=== PATIENT | female | born 1985 | race African-American/Black ===

== ENCOUNTER → 2017-11-13 | Outpatient (CLI) | payer OTHER ==
[2014-07-08 12:30] VITALS: BP 113/63
--- NOTE | 2017-11-13 16:34 | KCIC ---
Thyroid ultrasound HISTORY: Enlarged thyroid. Right thyroid: * 6.0 cm longitudinal by 1.1 cm AP by 2.0 cm transverse. * Normal echotexture and vascularity. * No dominant mass. Isthmus: * 3.5 mm Left thyroid: * 5.1 cm x 1.3 cm x 1.9 cm * Echotexture and vascularity appears within normal limits. * No dominant mass. IMPRESSION: 1. Borderline enlargement of the right lobe of the thyroid. 2. Otherwise unremarkable thyroid ultrasound without focal lesion. Electronically signed by: Dylan Francois MD (11/13/2017 4:31 PM) [facility]
--- NOTE | 2017-11-13 16:39 | KCIC ---
Pelvic ultrasound Clinical Indication: . Ovarian cyst.. Uterus: * Size (in centimeters): 8.1 x 3.9 x 4.9 * Appearance: No evidence of mass * Endometrium: 8 mm endometrial stripe thickness. Uniform appearance. Right ovary: * Size: 3.7 cm long axis. * Blood flow: Intact * Appearance: Complex 2.4 cm cyst with a thick septation. No significant internal vascularity. Left ovary: * Size: 3.4 cm long axis. * Blood flow: Intact * Appearance: No significant mass. Free fluid: None visualized IMPRESSION: 1. Complex cystic lesion in the right ovary measures 2.4 cm. This could be monitored with ultrasound follow-up. 2. Uterus and left ovary unremarkable. Electronically signed by: Dylan Francois MD (11/13/2017 4:35 PM) [facility]
== END | disposition home or self-care (01) ==
LOC: KCIC US 14:34
PROVIDERS: ATTEND Obstetrics & Gynecology
DX: N83.291 Other ovarian cyst, right side (principal); E04.9 Nontoxic goiter, unspecified
CPT/HCPCS: 76536; 76856

== ENCOUNTER 2018-11-10 09:30 | Emergency (ER) | payer MEDICAID, OTHER ==
[~2018-11-10] VITALS: Ht 182.9 cm; Wt 70.3 kg
[2018-11-10 09:35] VITALS: BP 114/58
--- NOTE | 2018-11-10 09:48 | PHYS DOC ---
Past Medical History Past Medical History: Sickle Cell Disease Past Surgical History: No Surgical History Alcohol Use: None Drug Use: None Adult General Chief Complaint Chief Complaint: LOWER BACK PAIN OR INJURY HPI HPI Patient is a 33 year old female that presents with left flank pain ongoing for a week. This the third time the patient's been seen for this complaint. The patient was told at that she did not have a urinary tract infection, went someplace else was told she did have a urinary tract infection and placed on Cipro for 7 days. Sates that when she was originally placed on Cipro she was having discharge and a dark urine which is now gone away. However she states that she still having left flank pain. She states that her pain as 7 out of 10 in severity and sharp and that she last took ibuprofen at 8:00 PM last night. Her only medical history is sickle cell anemia. Review of Systems Review of Systems Constitutional: Denies fever or chills [] Eyes: Denies change in visual acuity, redness, or eye pain [] HENT: Denies nasal congestion or sore throat [] Respiratory: Denies cough or shortness of breath [] Cardiovascular: No additional information not addressed in HPI [] GI: Reports L flank pain. Denies nausea, vomiting, bloody stools or diarrhea [] : Denies dysuria or hematuria [] Musculoskeletal: Denies back pain or joint pain [] Integument: Denies rash or skin lesions [] Neurologic: Denies headache, focal weakness or sensory changes [] Endocrine: Denies polyuria or polydipsia [] Complete systems were reviewed and found to be within normal limits, except as documented in this note. Allergies Allergies Allergies Coded Allergies Type Severity Reaction Last Updated Verified No Known Drug Allergies 12/15/13 No Physical Exam Physical Exam Constitutional: Well developed, well nourished, no acute distress, non-toxic appearance. [] HENT: Normocephalic, atraumatic, bilateral external ears normal, oropharynx moist, no oral exudates, nose normal. [] Eyes: PERRLA, EOMI, conjunctiva normal, no discharge. [] Neck: Normal range of motion, no tenderness, supple, no stridor. [] Cardiovascular:Heart rate regular rhythm, no murmur [] Lungs & Thorax: Bilateral breath sounds clear to auscultation [] Abdomen: Bowel sounds normal, soft, L flank tenderness, no masses, no pulsatile masses. [] Skin: Warm, dry, no erythema, no rash. [] Back: has back tenderness on palpation. Extremities: No tenderness, no cyanosis, no clubbing, ROM intact, no edema. [] Neurologic: Alert and oriented X 3, normal motor function, normal sensory function, no focal deficits noted. [] Psychologic: Affect normal, judgement normal, mood normal. [] Current Patient Data Vital Signs Vital Signs Date Time Temp Pulse Resp B/P (MAP) Pulse Ox O2 Delivery O2 Flow Rate FiO2 11/10/18 09:35 98.8 57 16 114/58 (76) 98 Room Air 98.8 Lab Values Laboratory Tests Test 11/10/18 09:35 11/10/18 09:44 Urine Collection Type Unknown Urine Color Yellow Urine Clarity Clear Urine pH 7.0 Urine Specific [place] 1.010 Urine Protein Negative mg/dL (NEG-TRACE) Urine Glucose (UA) Negative mg/dL (NEG) Urine Ketones (Stick) Negative mg/dL (NEG) Urine Blood Negative (NEG) Urine Nitrite Negative (NEG) Urine Bilirubin Negative (NEG) Urine Urobilinogen Dipstick 0.2 mg/dL (0.2 mg/dL) Urine Leukocyte Esterase Negative (NEG) Urine RBC 0 /HPF (0-2) Urine WBC 0 /HPF (0-4) Urine Squamous Epithelial Cells Few /LPF Urine Bacteria 0 /HPF (0-FEW) POC Urine HCG, Qualitative Hcg negative (Negative) EKG EKG [] Radiology/Procedures Radiology/Procedures [] Course & Med Decision Making Course & Med Decision Making Pertinent Labs and Imaging studies reviewed. (See chart for details) Will get UA and test. UA/Preg are negative. Appears likely to be muscle spasm. Will d/c home. Dragon Disclaimer Dragon Disclaimer This electronic medical record was generated, in whole or in part, using a voice recognition dictation system. Departure Departure Impression: Primary Impression: Back pain Disposition: HOME, SELF-CARE Condition: STABLE Referrals: NON,STAFF (PCP) Patient Instructions: Back Pain, Adult Additional Instructions: Thank you for visiting [facility]. We appreciate you trusting us with your care. If any additional problems come up don't hesitate to return to visit us. Please follow up with your primary care provider so they can plan additional care if needed and know about the problem that you had. If symptoms worsen come back to the Emergency Department. Any concerning symptoms that start such as chest pain, shortness of air, weakness or numbness on one side of the body, running high fevers or any other concerning symptoms return to the ER. Please fill your medications at any pharmacy and follow the prescription instructions. Scripts Orphenadrine Citrate (ORPHENADRINE CITRATE) 100 Mg Tablet.er 1 TAB PO BID PRN for MUSCLE SPASMS, #20 TAB Prov: MASON LE APRN 11/10/18 Problem Qualifiers Primary Impression: Back pain Back pain location: low back pain Chronicity: acute Back pain laterality: left Sciatica presence: without sciatica Qualified Codes: M54.5 - Low back pain MASON LE APRN Nov 10, 2018 09:48
[2018-11-10 09:58] LABS: BILIRUBIN,URINE NEGATIVE (NEG); CLARITY,URINE CLEAR; COLOR,URINE YELLOW; NITRITE,URINE NEGATIVE (NEG); PROTEIN,URINE NEGATIVE (NEG-TRACE); UROBILINOGEN,URINE 0.2 mg/dL (0.2 mg/dL)
[2018-11-10 10:10] LABS: BACTERIA,URINE 0 /HPF (0-FEW); RBC,URINE 0 /HPF (0-2); SQUAMOUS EPITHELIAL CELL,UR FEW /LPF; WBC,URINE 0 /HPF (0-4)
[2018-11-10] MEDS ORDERED: ORPH100T PO (10:46)
== END 2018-11-10 10:48 | disposition home or self-care (01) ==
LOC: ER 09:30
DX: M54.5 Low back pain (principal); R10.9 Unspecified abdominal pain; D57.1 Sickle-cell disease without crisis
CPT/HCPCS: 81001; 81025; 99283

== ENCOUNTER 2020-01-13 18:58 | Emergency (ER) | payer MEDICAID ==
[~2020-01-13] VITALS: Ht 185.4 cm; Wt 72.7 kg
[~2020-01-13 18:58] MED LIST: ORPH100T PO
[2020-01-13 19:35] VITALS: BP 126/72
--- NOTE | 2020-01-13 21:06 | ED.ADGEN ---
Past Medical History Past Medical History: Sickle Cell Disease Past Surgical History: No Surgical History Smoking Status: Never Smoker Alcohol Use: None Drug Use: None General Adult EDM: Chief Complaint: COUGH HPI: HPI: Patient is a 34 year old AA female who presents to the emergency department with request for COVID-19 test. Patient states she was seen at [facility] yesterday and diagnosed with a sinus infection. She reports that the staff at the [facility] told her that her COVID-19 test was negative but the patient reports that she never even had a COVID-19 test. She denies any shortness of breath, chest pain, abdominal pain, nausea, vomiting, diarrhea, abdominal pain, or sore throat. Patient states that she has had a fever, and an infrequent dry cough for the last 5 days. Patient reports that her best friend who she spends a lot of time with was informed that she tested positive for COVID-19 therefore she has been exposed to the illness and that is why she requests testing. She currently denies any pain. Review of Systems: Review of Systems: Complete ROS is negative unless otherwise noted in HPI. Allergies: Allergies: Allergies Coded Allergies Type Severity Reaction Last Updated Verified No Known Drug Allergies 12/15/13 No Physical Exam: PE: See Above Constitutional: Well developed, well nourished, no acute distress, non-toxic appearance. [] HENT: Normocephalic, atraumatic, bilateral external ears normal, nose normal. [] Eyes: PERRLA, EOMI, conjunctiva normal, no discharge. [] Neck: Normal range of motion, no stridor. [] Cardiovascular:Heart rate regular rhythm Lungs & Thorax: Respirations even and unlabored, no retractions, no respiratory distress Skin: Warm, dry, no erythema, no rash. [] Extremities: No cyanosis, ROM intact, no edema. [] Neurologic: Alert and oriented X 3, no focal deficits noted. [] Psychologic: Affect normal, judgement normal, mood normal. [] Current Patient Data: Vital Signs: Vital Signs Date Time Temp Pulse Resp B/P (MAP) Pulse Ox O2 Delivery O2 Flow Rate FiO2 01/13/20 19:35 99.2 102 18 126/72 (90) 97 Room Air 99.2 EKG: EKG: [] Heart Score: Risk Factors: Risk Factors: DM, Current or recent (<one month) smoker, HTN, HLP, family history of CAD, obesity. Risk Scores: Score 0 - 3: 2.5% MACE over next 6 weeks - Discharge Home Score 4 - 6: 20.3% MACE over next 6 weeks - Admit for Clinical Observation Score 7 - 10: 72.7% MACE over next 6 weeks - Early Invasive Strategies Radiology/Procedures: Radiology/Procedures: [] Course & Med Decision Making: Course & Med Decision Making Pertinent Labs and Imaging studies reviewed. (See chart for details) 34-year-old female presents to the emergency room with request for Covid testing. I offered the patient a chest x-ray, patient declined. She states she would just like to be tested for COVID-19 because she has been in close contact with a friend that recently tested positive for COVID-19. I advised the patient that the Covid test takes at least 2 days to come back provided her with quarantine instructions and encouraged her to follow them. Return to the ER if symptoms worsen. Patient verbalized an understanding of home care, medications, follow-up, and return to ED instructions and was in agreement with the plan of care. COVID-19 CRITERIA: The patient was evaluated during the global COVID-19 pandemic, and that diagnosis was suspected/considered upon their initial presentation. Their evaluation, treatment and testing was consistent with current guidelines for patients who present with complaints or symptoms that may be related to COVID-19. [] Dragon Disclaimer: Dragon Disclaimer: This electronic medical record was generated, in whole or in part, using a voice recognition dictation system. Departure Departure Impression: Primary Impression: Person under investigation for COVID-19 Additional Impression: Cough Disposition: 01 DC HOME SELF CARE/HOMELESS Condition: STABLE Referrals: BRITNI DEMARCO MD (PCP) Patient Instructions: Cough, Adult, [id number] Additional Instructions: You have been tested for or diagnosed with COVID-19. It is an infection caused by a new type of coronavirus. COVID-19 will cause cold-like or mild flu symptoms in most. It can cause more severe symptoms like problems breathing in some. There is no treatment for COVID-19. The body will clear the infection over time. Self-care will help to ease discomfort. Steps to Take: Self-Care Rest as needed. Healthy habits may help you feel better. Steps include: Choose healthy foods including fruits and vegetables. Drink water throughout the day. Get plenty of sleep each night. If you smoke, try to quit. It may ease breathing. Avoid alcohol. Keep Others Healthy The virus can spread to others. Droplets are released every time you sneeze or cough. The droplets can get into the mouth, nose, or eyes of people near you and lead to infection. To lower the chances of spreading COVID-19 to others: Stay at home until your doctor has said it is safe to leave. If you tested positive this will mean staying isolated until both of the following are true: At least 7 days have passed since the start of illness. You are free of fever for at least 72 hours without the use of medicine. During this time: - Avoid public areas, events, or transportation. Do not return to work or school until your doctor has said it is safe to do so. - Call ahead if you need to go to a medical center. Let them know you may have COVID-19. It will help them guide you where to go. They may also ask you to wear a facemask when you come to the office. - If you call for emergency medical services, let them know you may have COVID- 19. While at home: - Try to avoid close contact with others. Stay about 6 feet away. - If possible, spend most of your time in a separate room from others. - Use a face mask if you will be in close contact with others such as sharing a room or vehicle. - Have someone wipe down common surfaces in the home. Use household cabinetmaker apprentice every day on areas like doorknobs, counters, or sinks. - Cough or sneeze into a tissue. Throw the tissue away right after use. If a tissue is not available, cough or sneeze into your elbow. - Wash your hands often. Wash them after sneezing or coughing. Use soap and water and wash for at least 20 seconds. Alcohol based hand boat cleaner can be used if soap and water is not available. - Do not prepare food for others. Avoid sharing personal items like forks, spoons, or toothbrushes. - Avoid close contact with pets while you are sick. There is no evidence of the virus passing to pets. This is a safety step until more is known about this virus. Isolation can be frustrating. Social interaction can help. Keep in touch with friends and family through phone and tech options. You can still interact with others in your home, just keep a safe distance of about 6 feet. Follow-up: Your doctors office will check in with you to see if there are any changes in your health. You may be asked to keep track of symptoms to share with them. They will also let you know when you are clear to be in public again. Problems to Look Out For: Contact your doctor if your recovery is not going as you expect. Get emergency care if you have problems such as: - Trouble breathing - Nonstop chest pain or pressure - Changes in awareness, confusion, or problems waking - Lips or face have bluish color - Worsening of symptoms If you think you have an emergency, call for emergency medical services right away. As taken from [facility] COVID-19 Assessment: COVID-19 Patient Risks: Age 65 or older: No Sign of co-morbidity: No Exp to person + for COVID: Yes Exp to PUI: No Travel from affected area: No Lower respiratory symptoms: No Fever: Yes Other: No PPE Use: Full PPE with N95 mask or PAPR: Yes (N95) Problem Qualifiers EDUARD LINO APRN Jan 13, 2020 21:06
== END 2020-01-13 21:30 | disposition home or self-care (01) ==
LOC: ER 18:58
DX: R05 Cough (principal); R50.9 Fever, unspecified
CPT/HCPCS: 99281

== ENCOUNTER → 2020-01-22 | Outpatient (CLI) | payer MEDICAID ==
[2020-01-13 19:35] VITALS: BP 126/72
--- NOTE | 2020-01-23 14:28 | NUR ---
IP: Informed pt of positive COVID PCR. Explained how if a Rapid is negative, we send it for confirmation by running a PCR. Pt symptoms began on 01/13/20 but is now asymptomatic. Encouraged her to continue quarantine for 4 more days. Pt verbalized understanding. Requested I mail the results. I will send out today.
== END ==
LOC: LAB 12:23
PROVIDERS: ATTEND Emergency Medicine
DX: U07.1 COVID-19 (principal)
CPT/HCPCS: 87426; U0003

== ENCOUNTER 2021-02-06 23:07 | Emergency (ER) | payer BC, MEDICAID ==
[~2021-02-06] VITALS: Ht 177.8 cm; Wt 80.0 kg
[2021-02-07] MEDS ORDERED: CYCLOBENZAPRINE 10 MG TABLET. PO ONE (00:15)
[2021-02-07] MEDS ORDERED: HYDROcodone/APAP 5/325MG 1 TAB TABLET PO ONE (00:15)
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
--- NOTE | 2021-02-07 01:26 | RAD ---
INDICATION: Trauma with head and neck pain COMPARISON: None. TECHNIQUE: Axial CT images obtained through the head and cervical spine without intravenous contrast. Coronal a nd sagittal reformats processed of cervical spine. One or more of the following individualized dose reduction techniques were utilized for this examinat ion: 1. Automated exposure control; 2. Adjustment of the mA and/or kV according to patient size; 3 . Use of iterative reconstruction technique. FINDINGS: Head: No intracranial hemorrhage. No midline shift. Basal cisterns patents. Ventricles and sulci are within normal limits. No acute osseous abnormality. Orbits and paranasal sinuses unremarkable. Cervical: No definite acute fracture. No dislocation. No evidence of perivertebral hematoma. There is some degenerative changes the spine. IMPRESSION: * No acute intracranial hemorrhage. * No acute fracture or dislocation of the cervical spine. Electronically signed by: Yemi Tinajero MD (02/07/2021 1:23 AM) [id number]
--- NOTE | 2021-02-07 01:37 | RAD ---
INDICATION: Trauma with chest and spinal pain COMPARISON: None. TECHNIQUE: Axial CT images obtained through the chest, thoracic and lumbar spine. Limited evaluation for solid o rgan or vascular injury secondary to lack of intravenous contrast. One or more of the following individualized dose reduction techniques were utilized for this examinat ion: 1. Automated exposure control; 2. Adjustment of the mA and/or kV according to patient size; 3 . Use of iterative reconstruction technique. FINDINGS: Chest: No evidence of pneumothorax. No focal airspace consolidation. Gallstone at partially visualized gallbladder. Soft tissue density anterior mediastinum commonly from thymic tissue. Portions of the thoracic aorta are not well seen secondary to lack of adjacent fat and lack of contra st but no aneurysmal dilatation at the visualized portion. Mildly displaced left 11th rib fracture. Acute appearance. Thoracic spine: Mild degenerative changes. No definite acute fracture line is seen within the thoracic spine with minimal wedging at T8 and T9. Could be congenital or secondary to mild compression deformity. Lumbar spine: No evidence of malalignment. Degenerative changes lumbar spine with some disc protrusions and osteophyte formation as well as face t hypertrophy. There is a small amount of free fluid within the pelvis with a portion appearing slightly higher than simple density. IMPRESSION: * Displaced acute left lower rib fracture * Mild wedging of a couple of the thoracic vertebral bodies which could be congenital in nature or s econdary to mild indeterminate age compression deformity * Small free fluid within the pelvis with a portion of it measuring slightly higher than simple dens ity which could be from a small amount of complex component or blood within Electronically signed by: Yemi Tinajero MD (02/07/2021 1:35 AM) [id number]
[2021-02-07 03:27] LABS: CALCIUM 8.5 mg/dL (8.5-10.1); CREATININE 1.2 mg/dL (0.6-1.0); GFR 62.6; POTASSIUM 3.6 mmol/L (3.5-5.1)
[2021-02-07] MEDS ORDERED: CONTRAST GIVEN. MC PRN (03:30)
[2021-02-07] MEDS ORDERED: IOHEXOL 300 MG/ML 100ML VIAL. IV ONE (04:00)
[2021-02-07 04:43] VITALS: BP 98/57
--- NOTE | 2021-02-07 05:01 | RAD ---
INDICATION: Reason: left flank pain;OMNI 300, 75ML / Spl. Instructions: / History: COMPARISON: CT chest, thoracic and lumbar earlier same day TECHNIQUE: Axial CT images were obtained through the abdomen and pelvis with intravenous contrast. One or more of the following individualized dose reduction techniques were utilized for this examinat ion: 1. Automated exposure control; 2. Adjustment of the mA and/or kV according to patient size; 3 . Use of iterative reconstruction technique. FINDINGS: Vascular: No abdominal aortic aneurysm. Hepatobiliary: Low-density lesion within the liver centrally measuring approximately 17 mm. Suspected gallstone. Mild periportal edema. Pancreas: No peripancreatic edema. Spleen: No definite splenic hemorrhage. Renal/Bladder: No hydronephrosis. Gastrointestinal: Small free fluid in the pelvis is again seen. No dilated loops of bowel to suggest obstruction. Moderate stool within the colon. Limited assessment of the appendix secondary to unopaci fied loops of bowel in the area. Left 11th rib fracture again seen and appears mildly displaced. IMPRESSION: * Repeat demonstration of mildly displaced left 11th rib fracture which appears acute. * Repeat demonstration of small amount of free fluid within the pelvis. Unknown source. * There is a central low density region within the liver. Would favor that this is a low-density les ion such as hemangioma or complex cystic lesion rather than contusion given the location but would co rrelate with symptoms in the area. * Suspected gallstone. Electronically signed by: Yemi Tinajero MD (02/07/2021 4:58 AM) [id number]
[2021-02-07] MEDS ORDERED: LIDO1ADH78 TP ×2 (05:51→05:58)
[2021-02-07] MEDS ORDERED: HYDR-2761 PO ×2 (05:51→05:58)
== END 2021-02-07 06:51 | disposition home or self-care (01) ==
LOC: ER 23:07
DX: S22.32XA Fracture of one rib, left side, initial encounter for closed fracture (principal); R51.9 Headache, unspecified; M54.2 Cervicalgia; M54.50 Low back pain, unspecified; M54.6 Pain in thoracic spine; Y08.89XA Assault by other specified means, initial encounter; Y93.89 Activity, other specified; Y92.89 Other specified places as the place of occurrence of the external cause; Y99.8 Other external cause status
CPT/HCPCS: 36415; 70450; 71250; 72125; 72128; 72131; 74177; 80048; 81025; 99285; Q9967

== ENCOUNTER 2021-02-15 19:16 | Emergency (ER) | payer BC, MEDICAID ==
[~2021-02-15 19:16] MED LIST changes: +HYDR-2761 PO; +LIDO1ADH78 TP
== END 2021-02-15 19:25 | disposition left against medical advice (07) ==
LOC: ER 19:16
DX: Z04.1 Encounter for examination and observation following transport accident (principal); Z53.21 Procedure and treatment not carried out due to patient leaving prior to being seen by health care provider